=== PATIENT | male | born 1940 | race Two or more races ===

== ENCOUNTER 2017-08-26 17:52 | Emergency (ER) | payer MEDICARE ==
[~2017-08-26] VITALS: Ht 160 cm; Wt 62.0 kg
[~2017-08-26 17:52] MED LIST: ASPI-516 CHEW; ATOR20TA15 PO; METO25TA3 PO; OMEGCAP PO
[2017-08-26 17:58] VITALS: BP 94/52; PULSE 68; RESP 16; TEMP 101.3; O2SAT 96
[2017-08-26 20:10] VITALS: BP 100/57; PULSE 62; RESP 18; O2SAT 98
[2017-08-26] MEDS ORDERED: ZOFR4TAB3 SL (20:10)
[2017-08-26] MEDS ORDERED: OSEL75 PO (20:10)
--- NOTE | 2017-08-26 20:12 | PD ---
HPI Chief Complaint: Cold / Flu Symptoms Time Seen by Provider: 19:56 Travel History International Travel<30 days: No Contact w/Intl Traveler<30days: No Traveled to known affect area: No History of Present Illness HPI PATIENT HAD POS CONTACT WITH NEPHEW DX WITH FLU...NOW PT C/O 1 DAY H/O BODY ACHES, COUGH, OCC RUNNY NOSE, AND FEVER...DENIES N/V/D.... ALL:DENIES PMHX SIG FOR HTN, CHOL AND TRIPLE BYPASS PFSH Social History Tobacco Use: No Allergies-Medications (Allergen,Severity, Reaction): Coded Allergies: No Known Allergies (Verified Allergy, Unknown, 08/26/17) Reported Meds & Prescriptions Reported Meds & Active Scripts Active Zofran Odt (Ondansetron Odt) 4 Mg Tab 4 Mg SL Q6HR PRN Tamiflu (Oseltamivir Phosphate) 75 Mg Cap 75 Mg PO BID 5 Days Reported Otoe-3 Fish Oil/Vitamin (Fish Oil-Cholecalciferol) 1,000-1,000 Mg Cap 1 Cap PO DAILY Atorvastatin (Atorvastatin Calcium) 20 Mg Tab 20 Mg PO HS Aspirin 81 Mg Chew 81 Mg CHEW DAILY Metoprolol Tartrate 25 Mg Tab 25 Mg PO BID Review of Systems General / Constitutional: Positive: Fever, Other (GEN BODY ACHES) Eyes: No: Visual changes HENT: Positive: Rhinorrhea Cardiovascular: No: Chest Pain or Discomfort Respiratory: Positive: Cough Gastrointestinal: No: Abdominal Pain Genitourinary: No: Dysuria Musculoskeletal: No: Pain Skin: No Rash Neurologic: No: Weakness Psychiatric: No: Depression Endocrine: No: Polydipsia Hematologic/Lymphatic: No: Easy Bruising Physical Exam Narrative GENERAL: SKIN: Warm and dry. HEAD: Atraumatic. Normocephalic. EYES: Pupils equal and round. No scleral icterus. No injection or drainage. ENT: No nasal bleeding or discharge. Mucous membranes pink and moist. NECK: Trachea midline. No JVD. CARDIOVASCULAR: Regular rate and rhythm. RESPIRATORY: No accessory muscle use. Clear to auscultation. Breath sounds equal bilaterally. GASTROINTESTINAL: Abdomen soft, non-tender, nondistended. MUSCULOSKELETAL: Extremities without clubbing, cyanosis, or edema. No obvious deformities. NEUROLOGICAL: Awake and alert. No obvious cranial nerve deficits. Motor grossly within normal limits. Five out of 5 muscle strength in the arms and legs. Normal speech. PSYCHIATRIC: Appropriate mood and affect; insight and judgment normal. Data Data Last Documented VS Vital Signs Date Time Temp Pulse Resp B/P (MAP) Pulse Ox O2 Delivery O2 Flow Rate FiO2 08/26/17 20:33 08/26/17 20:10 18 98 Room Air 08/26/17 20:10 62 08/26/17 17:58 101.3 Orders Orders Oseltamivir (Tamiflu) (08/26/17 20:15) Ibuprofen (Motrin) (08/26/17 20:15) Ondansetron Odt (Zofran Odt) (08/26/17 20:15) Ed Discharge Order (08/26/17 20:28) MDM Medical Decision Making Medical Screen Exam Complete: Yes Emergency Medical Condition: Yes Medical Record Reviewed: Yes Interpretation(s) PULSE OX: GOOD PLETH WAVE, 98% ON RA, WNL Differential Diagnosis VIRAL SYNDROME V FLU V PNA Narrative Course due to patient's positive exposure to flu positive contact, will empircally treat with tamflu Diagnosis Primary Impression: Influenza Patient Instructions: General Instructions, Influenza (DC) Scripts Ondansetron Odt (Zofran Odt) 4 Mg Tab 4 MG SL Q6HR Y for Nausea/Vomiting, #20 TAB 0 Refills Prov: Vasiliy Parra MD 08/26/17 Oseltamivir (Tamiflu) 75 Mg Cap 75 MG PO BID for Mgmt Viral Infection for 5 Days, #10 CAP 0 Refills Prov: Vasiliy Parra MD 08/26/17 Disposition: 01 DISCHARGE HOME Condition: Stable Vasiliy Parra MD Aug 26, 2017 20:12
[2017-08-26] MEDS ORDERED: OSELTAMIVIR PHOSPHATE 75 MG CAP PO ONE (20:15)
[2017-08-26] MEDS ORDERED: IBUPROFEN 600 MG TAB PO ONE (20:15)
[2017-08-26] MEDS: ONDANSETRON ODT 4 MG TAB PO ONE ×2 (20:22→20:26)
== END 2017-08-26 20:47 | disposition home or self-care (01) ==
LOC: PHED 17:52
DX: J11.1 Influenza due to unidentified influenza virus with other respiratory manifestations (principal); M79.1 Myalgia; R05 Cough; R50.9 Fever, unspecified; I10 Essential (primary) hypertension; E78.00 Pure hypercholesterolemia, unspecified; Z95.1 Presence of aortocoronary bypass graft
CPT/HCPCS: 99283